=== PATIENT | female | born 2000 | race Caucasian/White ===

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

== ENCOUNTER 2021-01-18 00:31 | Emergency (ER) | payer OTHER, MEDICAID ==
[~2021-01-18] VITALS: Ht 170.2 cm; Wt 117.9 kg
[~2021-01-18 00:31] MED LIST changes: +MACROBID 100 M100 M1 PO; +YAZ 28 TABLET1 EACH; +ZOFRAN ODT4 MG PO
[2021-01-18] MEDS ORDERED: METFORMIN HCL500 M3 PO (00:47)
[2021-01-18 01:33] LABS: URINE BILIRUBIN 1+ (Negative); URINE BLOOD NEGATIVE (Negative); URINE CLARITY CLEAR; URINE COLOR YELLOW; URINE GLUCOSE-RANDOM NEGATIVE (Negative); URINE KETONES NEGATIVE (Negative); URINE LEUKOCYTES-REFLEX NEGATIVE (Negative); URINE NITRITE-REFLEX NEGATIVE (Negative); URINE PROTEIN NEGATIVE (Negative); URINE SPECIFIC GRAVITY >= 1.030 (1.005-1.030); URINE UROBILINOGEN 0.2 E.U./dl (0.2-1.0)
[2021-01-18 01:35] LABS: ICTOTEST (BILI CONFIRMATORY) Negative (Negative)
[2021-01-18] MEDS ORDERED: ZOFRAN ODT4 MG PO (02:07)
[2021-01-18 02:22] VITALS: BP 135/83
== END 2021-01-18 02:22 | disposition home or self-care (01) ==
LOC: M.ERS 00:31
PROVIDERS: Emergency Medicine
DX: R11.2 Nausea with vomiting, unspecified (principal); Z20.822 Contact with and (suspected) exposure to COVID-19; R51.9 Headache, unspecified; R42 Dizziness and giddiness

== ENCOUNTER 2021-01-20 17:59 | Emergency (ER) | payer OTHER, MEDICAID ==
[~2021-01-20] VITALS: Ht 170.2 cm; Wt 117.9 kg
[~2021-01-20 17:59] MED LIST changes: +METFORMIN HCL500 M3 PO
[2021-01-20] MEDS ORDERED: CELEXA 10 MG TA10 M1 PO (18:20)
[2021-01-20 18:26] LABS: ABSOLUTE BASOPHILS 0.1 thou/uL (0.0-0.2); ABSOLUTE LYMPHOCYTES 1.9 thou/uL (0.8-5.3); ABSOLUTE MONOCYTES 0.5 thou/uL (0.0-1.2); ABSOLUTE NEUTROPHILS 7.8 thou/uL (1.6-8.1); EOSINOPHILS 0.5 %; HEMOGLOBIN 13.4 gm/dL (12.0-15.0); LYMPHOCYTES 18.3 %; MCH 28.4 pg (26.0-34.0); MCHC 33.5 g/dL (28.0-37.0); MCV 84.8 fL (80.0-100.0); MPV 8.1 fl. (7.2-11.1); NUCLEATED RBCS 0 /100WBC; PLATELET COUNT* 307 thou/uL (150-400); POLYS 75.2 %; RBC 4.71 mil/uL (4.20-5.00); RDW-CV 12.9 % (10.5-14.5); WBC 10.3 thou/uL (4.0-11.0)
[2021-01-20 18:30] LABS: CALCIUM 9.2 mg/dL (8.5-10.1); CREATININE 0.8 mg/dL (0.6-1.3); POTASSIUM 4.1 mmol/L (3.5-5.1)
[2021-01-20 18:34] LABS: ALBUMIN 3.3 g/dL (3.4-5.0); TOTAL BILIRUBIN 0.2 mg/dL (<0.1-1.0); TOTAL PROTEIN 7.5 g/dL (6.4-8.2)
[2021-01-20] MEDS ORDERED: ZOFRAN ODT4 MG PO (19:45)
[2021-01-20 19:57] VITALS: BP 110/54
== END 2021-01-20 19:58 | disposition home or self-care (01) ==
LOC: M.ERS 17:59
PROVIDERS: Family Medicine
DX: R11.0 Nausea (principal); F32.9 Major depressive disorder, single episode, unspecified; Z79.899 Other long term (current) drug therapy

== ENCOUNTER 2021-04-04 07:18 | Emergency (ER) | payer OTHER, MEDICAID ==
[~2021-04-04] VITALS: Ht 170.2 cm; Wt 117.9 kg
[~2021-04-04 07:18] MED LIST changes: +CELEXA 10 MG TA10 M1 PO
[2021-04-04 07:37] VITALS: BP 129/78
== END 2021-04-04 08:04 | disposition home or self-care (01) ==
LOC: M.ERS 07:18
DX: R06.02 Shortness of breath (principal); R05.9 Cough, unspecified; Z53.21 Procedure and treatment not carried out due to patient leaving prior to being seen by health care provider

== ENCOUNTER 2021-04-26 00:25 | Emergency (ER) | payer OTHER, MEDICAID ==
[~2021-04-26] VITALS: Ht 170.2 cm; Wt 119.3 kg
[2021-04-26 03:06] VITALS: BP 134/68
--- NOTE | 2021-04-27 12:45 | EKG ---
[place] [address] ELECTROCARDIOGRAM REPORT Name: AMAURY DIEGO Room: [facility]#: [id number] Admission: 04/26/21 Attend Phys: Discharge: 04/26/21 Date of : 01 Date of Service: 04/26/21 0034 Report #: [id number] THIS REPORT FOR: //name// [facility] ED Test Date: 2021-04-26 Test Time: 00:34:16 Pat Name: AMAURY DIEGO Department: Room: Gender: Graphics Manager: PEREZ : 2000 Requested By: Rosa Saenz Order Number: [id number] MD: Emigdio Pelaez Measurements Intervals [place] Rate: 94 P: 45 NE: 134 QRS: 16 QRSD: 90 T: 33 QT: 373 QTc: 467 Interpretive Statements Sinus rhythm Probable left atrial enlargement Borderline T wave abnormalities Compared to ECG 06/02/2019 11:14:15 T-wave abnormality now present Electronically Signed On 04-27-2021 12:45:32 MANUAL LATHE MACHINIST by Emigdio Pelaez [email or web address] <ELECTRONICALLY SIGNED> By: Mara Pelaez MD, [facility] 04/27/21 1245 0034 0034 Mara Pelaez MD, [facility] /EPI
== END 2021-04-26 03:07 | disposition home or self-care (01) ==
LOC: M.ERS 00:25
DX: R07.89 Other chest pain (principal); Z20.822 Contact with and (suspected) exposure to COVID-19; R06.02 Shortness of breath; F32.9 Major depressive disorder, single episode, unspecified; F41.9 Anxiety disorder, unspecified; Z87.42 Personal history of other diseases of the female genital tract; Z79.899 Other long term (current) drug therapy